=== PATIENT | female | born 1985 | race Caucasian/White ===

== ENCOUNTER 2021-03-02 16:03 | Inpatient (IN) | payer OTHER ==
[~2021-03-02] VITALS: Ht 162.6 cm; Wt 58.5 kg
[2021-03-03] MEDS ORDERED: TRIMETHOBENZAM300 MG (09:07)
== END 2021-03-04 09:14 | disposition home or self-care (01) | DRG 833 ==
LOC: OB/GYN 16:03
PROVIDERS: ADMIT Obstetrics & Gynecology Maternal & Fetal Medicine; ATTEND Obstetrics & Gynecology Maternal & Fetal Medicine
PROC: 4A1HXFZ Monitoring of Products of Conception, Cardiac Rhythm, External Approach (ICD-10-PCS; principal; 2021-03-02)
DX: O21.0 Mild hyperemesis gravidarum (principal); Z3A.01 Less than 8 weeks gestation of pregnancy; Z20.822 Contact with and (suspected) exposure to COVID-19

== ENCOUNTER 2021-03-15 13:18 | Inpatient (IN) | payer OTHER ==
[~2021-03-15] VITALS: Ht 160 cm; Wt 56.7 kg
[~2021-03-15 13:18] MED LIST: TRIMETHOBENZAM300 MG
== END 2021-03-19 10:45 | disposition home or self-care (01) | DRG 833 ==
LOC: ER 13:18 → OB/GYN 15:30
PROVIDERS: ADMIT Obstetrics & Gynecology Maternal & Fetal Medicine; ATTEND Obstetrics & Gynecology Maternal & Fetal Medicine
DX: O21.0 Mild hyperemesis gravidarum (principal); O99.281 Endocrine, nutritional and metabolic diseases complicating pregnancy, first trimester; E86.0 Dehydration; Z3A.09 9 weeks gestation of pregnancy; Z20.822 Contact with and (suspected) exposure to COVID-19